=== PATIENT | female | born 2000 | race Caucasian/White ===

== ENCOUNTER 2019-09-19 09:22 | Emergency (ER) | payer OTHER, SELFPAY ==
[2019-09-19 09:26] VITALS: BP 110/78; PULSE 82; RESP 20; TEMP 35.7; O2SAT 97; BMI 30.9
--- NOTE | 2019-09-19 09:40 | RAD_ITS ---
STUDY: X-RAY - THORACIC SPINE REASON FOR EXAM: Female, 19 years old. UPPER THORACIC BACK PAIN S/P FALL; -- PATIENT STATES H/O T4 HAIRLINE FRACTURE TECHNIQUE: 3 view(s) of the thoracic spine were obtained. COMPARISON: None. FINDINGS: Normal kyphosis of the thoracic spine. There is no substantial scoliosis. Normal thoracic vertebrae and endplates. Normal disc space heights. The soft tissue structures are unremarkable. RAD/Thoracic Spine 3 Views IMPRESSION: Normal x-ray examination of the thoracic spine. Electronically Signed: Seth Gastelum, at 10:18 EDT , Service support ,
--- NOTE | 2019-09-19 09:57 | ED.VIS.FALL ---
History of Present Illness Informant: Patient Occurred: Today Mechanism/Context: Same level fall, Trip Usually ambulates: Without assistance Location: Thoracic back Quality of Pain: Sharp Current Severity: Moderate Maximum Severity: Moderate Worsened by: Movement and walking Relieved by: Rest Associated Symptoms: Negative for: Parasthesias, Weakness, Loss of function, Inability to ambulate, Loss of consciousness, Amnesia Narrative: 19-year-old female presents with thoracic back pain after mechanical fall this morning. Patient tripped and fell landing on her thoracic back. She had no prodromal symptoms. She did hit the back of her head on the ground but did not lose consciousness. She does not feel lightheaded or dizzy she has no neck pain no nausea no blurry vision double vision or loss of vision. She denies any weakness or paresthesias. She has a history of a thoracic back fracture several years ago from volleyball. She denies any other injuries at this time. Tetanus Immunization: <5 years Prior similar symptoms: Yes Recent Illness/Hospitalization: No <Regulo Wong - Last Filed: 09/19/19 10:29> <Earl Tolentino - Last Filed: 09/19/19 10:39> Chief Complaint: Back Past Medical History Prior records reviewed: Yes Past Medical History: None Surgical History: no surgical history Lives: With Family Smoking Status: Former smoker <Regulo Wong - Last Filed: 09/19/19 10:29> <Earl Tolentino - Last Filed: 09/19/19 10:39> - Allergies and Home Meds Allergies/Adverse Reactions: Allergies No Known Allergies Allergy (Verified 09/19/19 09:26) Primary Care Physician: Tristan Ortiz DO [Primary Care Provider] - Review of Systems All systems negative except as indicated General: Denies: Chills, Fever, Malaise Eyes: Denies: Visual changes - bilaterally, Blurred Vision - bilaterally, Diplopia ENT: Denies: Bilateral ear pain, Rhinorrhea, Sore throat Cardiovascular: Denies: Chest pain, Palpitations, Heart racing Respiratory: Denies: Dyspnea, Cough, Sputum, Dyspnea on exertion Gastrointestinal: Denies: Abdominal pain, Nausea, Vomiting, Diarrhea Genitourinary: Denies: Dysuria, Hematuria, Frequency Musculoskeletal: Reports: Back pain. Denies: Myalgias, Arthralgias, Neck pain, Swelling, Extremity Pain Skin: Denies: Rash, Abscess, Abrasions, Wounds Neurological: Denies: Headache, Weakness, Parasthesia, Numbness <Regulo Wong - Last Filed: 09/19/19 10:29> Physical Exam Vital Signs/Narrative: Vital Signs Temp Pulse Resp BP Pulse Ox 09/19/19 09:26 96.2 F L 82 20 H 110/78 97 Inital Vital Signs reviewed: Yes General: Well nourished, Well developed Head: Normocephalic, Atraumatic Eyes: Perrl, EOMI ENT: TM's clear, No hemotympanum or drainage, No trauma Neck: Nontender, Full ROM. Negative for: Spinal Tenderness, Paraspinal Tenderness Cardiovascular: Regular rate, Regular rhythm, No murmurs Respiratory: No distress, CTA bilaterally, Chest nontender Abdomen: Soft, Nontender, Nondistended, Normal bowel sounds, No masses Back: Spinal Tenderness - Thoracic spinal tenderness. No deformities. Normal inspection of the back. Normal strength testing of all 4 extremities, Paraspinal Tenderness, Negative SLR - Right, Negative SLR - Left. Negative for: CVA Tenderness - Right, CVA Tenderness - Left Skin: Normal color, No rash, No Trauma Neurological: Alert, Oriented x3, Cranial nerves II-XII grossly intact, Normal Strength, Normal Sensation, Normal Gait Psychological: Normal affect, Normal Mood <Regulo Wong - Last Filed: 09/19/19 10:29> Vital Signs/Narrative: Vital Signs Temp Pulse Resp BP Pulse Ox 09/19/19 10:33 14 09/19/19 09:26 96.2 F L 82 20 H 110/78 97 <Earl Tolentino - Last Filed: 09/19/19 10:39> Diagnostic/Tx/Re-eval - Medical Decision Making Patient declined analgesia. Thoracic spine x-ray showed no acute findings. Repeat evaluation patient reassured. She will rest and ice. She has Motrin at home to use for pain. She will alternate with Tylenol. I advised her that if she develops worsening symptoms which I went over with her in detail that she is to return to the emergency department. She was agreeable with plan of care all questions were answered. <Regulo Wong - Last Filed: 09/19/19 10:29> - Medical Decision Making Patient has thoracic back pain. She has a history of the same. Exam reveals pain in the thoracic area. Xrays are negative for any findings. She will use motrin and tylenol and follow up with her PCP. <Earl Tolentino - Last Filed: 09/19/19 10:39> ED Disposition <Regulo Wong - Last Filed: 09/19/19 10:29> <Earl Tolentino - Last Filed: 09/19/19 10:39> - Plan for ED Patient: Disposition: Home or Assisted Living Diagnosis: Contusion of thoracic wall Instructions: ED Contusion Back Referrals: Tristan Ortiz DO [Primary Care Provider] -
[2019-09-19 10:33] VITALS: RESP 14
== END 2019-09-19 10:33 | disposition home or self-care (01) ==
PROVIDERS: Emergency Provider Physician Assistant Medical; PCP Family Medicine
DX: S20.229A Contusion of unspecified back wall of thorax, initial encounter (principal); W01.0XXA Fall on same level from slipping, tripping and stumbling without subsequent striking against object, initial encounter; Z87.891 Personal history of nicotine dependence
CPT/HCPCS: 72072; 99282

== ENCOUNTER 2025-01-27 12:12 | Emergency (ER) | payer BC, SELFPAY ==
[2025-01-27 12:13] VITALS: BP 132/89; PULSE 81; RESP 14; TEMP 36.1; O2SAT 98; BMI 27.6
--- NOTE | 2025-01-27 13:11 | EKG12_ITS ---
Test Reason : CP/SOB Blood Pressure : */* mmHG Vent. Rate : 73 BPM Atrial Rate : 73 BPM P-R Int : 100 ms QRS Dur : 98 ms QT Int : 408 ms P-R-T Axes : 53 10 -6 degrees QTcB Int : 449 ms Sinus rhythm with short AR Otherwise normal ECG Confirmed by Keith Dewey ([id number]), assistant film editor ABDULAZIZ RICO ([id number]) on 01/28/2025 11:40:54 AM Referred By: UG/BB Confirmed By: Keith Dewey
--- NOTE | 2025-01-27 13:11 | EKG12_ITS ---
Test Reason : CP/SOB Blood Pressure : */* mmHG Vent. Rate : 73 BPM Atrial Rate : 73 BPM P-R Int : 100 ms QRS Dur : 98 ms QT Int : 408 ms P-R-T Axes : 53 10 -6 degrees QTcB Int : 449 ms Sinus rhythm with short [place] Otherwise normal ECG Confirmed by Keith Dewey ([id number]), editor producer ABDULAZIZ RICO ([id number]) on 01/28/2025 11:40:54 AM Referred By: UG/BB Confirmed By: Keith Dewey
[2025-01-27] MEDS: Lidocaine 2% Viscous15 ML UDC 15 ML PO (13:17)
--- NOTE | 2025-01-27 13:25 | RAD_ITS ---
PROCEDURE: CHEST 1 VIEW (PORTABLE) 01/27/2025 REASON FOR EXAM: CHEST PAIN TECHNIQUE: Frontal view of the chest. COMPARISON: None FINDINGS: Heart size and configuration are within normal limits. Pulmonary vasculature and hilar structures are unremarkable. Trachea is midline. Lungs are expanded and clear without evidence of atelectasis, consolidation, effusion, pneumonic infiltrate or pneumothoraces. Osseous structures appear to be within normal limits. Soft tissue structures appear unremarkable. RAD/Chest 1 View (Portable) IMPRESSION: No acute cardiopulmonary process is identified radiographically. Reading Location: [id number]
--- NOTE | 2025-01-27 13:25 | RAD_ITS ---
PROCEDURE: CHEST 1 VIEW (PORTABLE) 01/27/2025 REASON FOR EXAM: CHEST PAIN TECHNIQUE: Frontal view of the chest. COMPARISON: None FINDINGS: Heart size and configuration are within normal limits. Pulmonary vasculature and hilar structures are unremarkable. Trachea is midline. Lungs are expanded and clear without evidence of atelectasis, consolidation, effusion, pneumonic infiltrate or pneumothoraces. Osseous structures appear to be within normal limits. Soft tissue structures appear unremarkable. RAD/Chest 1 View (Portable) IMPRESSION: No acute cardiopulmonary process is identified radiographically. Reading Location: [id number]
[2025-01-27 13:29] LABS: Hematocrit 38.6 % (37-47); Hemoglobin 13.5 g/dL (12.0-15.0); Immature Granulocytes Count 0.010 X10^3/uL (0.0-0.0); Mean Corp Hgb Conc 35.0 g/dL (32-36); Mean Corpuscular Volume 89.4 fL (81-99); Mean Platelet Vol. 9.4 fl (6.2-12.0); NRBC Flagged by Analyzer 0 % (0-5); Platelet Count 209 K/mm3 (150-450); RBC Distribution Width CV 11.6 % (11.6-14.6); RBC Distribution Width SD 38.0 fl (35.1-43.9); Red Blood Count 4.32 M/mm3 (4.2-5.4); White Blood Count 6.3 K/mm3 (4.4-11.0)
[2025-01-27 13:52] LABS: Anion Gap 12 (5-15); BUN 14 mg/dL (4-19); BUN/Creat Ratio 18.5 RATIO (10-20); Calcium,Total 9.3 mg/dL (7.6-11.0); Carbon Dioxide 23.7 mmol/L (21.0-32.0); Chloride 103 mmol/L (98-108); Estimated Creatinine Clearance 115.42 ml/min (50-250); Glucose 90 mg/dL (70-99); Potassium 3.6 mmol/L (3.3-5.1); Troponin T High Sensitivity < 6 ng/L (<=14)
--- NOTE | 2025-01-27 14:29 | ED.VIS.CHEST ---
HPI History of Present Illness Chief Complaint: Chest Pain Informant: patient Narrative Narrative: 25-year-old female started having some lower midsternal sharp chest discomfort last night, she woke up from sleep this morning with it worse than it has been present all morning. She states if she takes a deep breath it is a little worse and makes her feel like it is difficult to take a deep breath. She is not frankly winded. She denies any palpitations, racing heartbeat, left arm discomfort, radiation into her back or her jaw, or syncope/near syncope. No recent leg pain or swelling. No history of DVT or PE. She is a non-smoker although she used to in the past, and she is on no exogenous female hormone therapy. No recent long travel or immobilization/hospitalization/surgery. 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 As a separate issue, the patient states for the past 3-4 weeks she has been having intermittent dizziness that also gives her disequilibrium and she feels like she is off balance when walking and has trouble with spatial recognition at times. She feels like she has got a bump in the things because she is off balance. In the same period of time she has been having discomfort in her left ear and changes in her hearing although she can hear, was diagnosed by her doctors having a possible ear infection and placed on antibiotics but it did not help anything. She denies headaches, diplopia although she is having issues with her vision separately without vision loss, and denies any peripheral neurologic symptoms. [facility] Medical History Idiopathic gastroparesis Asthma Anxiety Depression Home Medications ?Medication ?Instructions ?Recorded ?Last Taken ?Type azelaic acid 15 % topical gel 1 applic topical BID 01/27/25 Unknown History cyclobenzaprine 5 mg tablet 5 mg PO BID PRN PRN muscle spasm 01/27/25 Unknown History meclizine 25 mg tablet 25 mg PO TID PRN dizziness #20 tabs 01/27/25 Unknown Rx metronidazole 0.75 % topical cream 1 applic topical BID 01/27/25 Unknown History spironolactone 100 mg tablet 100 mg PO DAILY 01/27/25 Unknown History Allergy/AdvReac Type Severity Reaction Status Date / Time No Known Allergies Allergy Verified 01/27/25 12:13 Social History Smoking Status: Current some day smoker tobacco type: cigarettes and e-cigarettes ROS ROS ED Constitutional Constitutional ED: Denies chills or fever(s) Eyes Eyes: Denies change in vision or diplopia ENT ENT ED: Reports as per HPI, abnormal hearing, disequillibrium and dizziness; Denies ear discharge, ear pain, rhinorrhea, sore throat or tinnitus Cardiovascular Cardiovascular: Reports as per HPI and chest pain; Denies palpitations Respiratory/Chest Respiratory/Chest: Denies cough, dyspnea or hemoptysis Gastrointestinal Gastrointestinal: Reports nausea; Denies abdominal pain, diarrhea or vomiting Genitourinary Genitourinary ED: Denies dysuria or hematuria Musculoskeletal Musculoskeletal: Denies back pain or neck pain Integumentary Denies abscess or rash Neurologic Neurologic: Reports as per HPI, abnormal gait, abnormal hearing, disequilibrium and dizziness; Denies headache(s), paresthesias or weakness Psychiatric Psychiatric: Denies anxiety or suicidal thoughts EXAM Physical Exam Const Vital Signs: 01/27/25 12:13 01/27/25 12:33 01/27/25 12:40 Temperature 97 F L Temperature Source Temporal Pulse Rate 81 Respiratory Rate 14 Respiratory Pattern Normal Blood Pressure 132/89 H Blood Pressure Mean 103 Pulse Ox 98 Oxygen Delivery Method Room Air Room Air 01/27/25 14:45 Temperature Temperature Source Pulse Rate 62 Respiratory Rate 13 Respiratory Pattern Blood Pressure Blood Pressure Mean Pulse Ox 98 Oxygen Delivery Method Positive well nourished and well developed General Appearance ED: well developed and NAD HEENT Reports moist mucous membranes normocephalic and atraumatic Eyes PERRL and EOMs intact bilaterally Neck full ROM and supple Resp normal respiratory effort and clear to auscultation bilaterally Cardio regular rate, regular rhythm and no murmurs GI non-tender and non-distended Auscultation: normoactive bowel sounds Palpation: soft Back/Spine no CVA tenderness General Back: other FROM Extremity normal to inspection General Extremety ED: Negative for edema, pulses abnormal or tenderness General Extremity: Negative for edema or pulses abnormal Neuro oriented x3, CN's II-XII intact bilaterally and no sensory deficits noted Sensorium / Orientation: awake and alert Motor Exam: strength 5/5 throughout Skin no rashes or lesions noted and no wounds Heart Score History: Slightly/Non-Suspicious ECG: Normal Age: </= 45 years Risk Factors: No Risk Factors Troponin: </= Normal Limit Score: 0 MDM MDM MDM Narrative Medical decision making narrative: Patient's EKG is normal. I think she is very unlikely had an acute coronary syndrome, her single negative troponin correlates. 2 view chest x-ray my interpretation is normal radiology in agreement. PERC score 0, obviating further workup for PE at this time for the symptoms. Her other labs are normal in the meantime she was given a GI cocktail she states this helped but she still in some discomfort. Esophageal reflux in addition to spasm are considered in the differential, so she will also be given a hyoscyamine prior to discharge, I am also going to prescribe her meclizine to use as needed for what sounds like peripheral vertigo, she has pantoprazole which I advised her taking daily for the next week or so and following up. She is comfortable with that plan. Lab Data Attestation: I reviewed the patient's lab results. Labs: Laboratory Results - last 24 hr 01/27/25 12:40 WBC 6.3 RBC 4.32 Hgb 13.5 Hct 38.6 MCV 89.4 MCH 31.3 MCHC 35.0 RDW Std Deviation 38.0 RDW Coeff of Zaira 11.6 Plt Count 209 MPV 9.4 Immature Gran % (Auto) 0.200 Neut % (Auto) 60.0 Lymph % (Auto) 29.8 [place] % (Auto) 6.7 Eos % (Auto) 2.5 Baso % (Auto) 0.8 Absolute Neuts (auto) 3.8 Absolute Lymphs (auto) 1.88 Nucleated RBC % 0 Sodium 139 Potassium 3.6 Chloride 103 Carbon Dioxide 23.7 Anion Gap 12 BUN 14 Creatinine 0.77 Estim Creat Clear Calc 115.42 Est GFR (MDRD) Non-Af 108 BUN/Creatinine Ratio 18.5 Glucose 90 Calcium 9.3 Troponin T High Sens < 6 Radiography Diagnostic Testing: Clinical Impression(s) from Imaging Studies Chest X-Ray 01/27/25 13:25 IMPRESSION: No acute cardiopulmonary process is identified radiographically. Reading Location: [facility] Discharge Plan Triage Chief Complaint: Chest Pain ED Provider: Ajay Rousseau Dx/Rx/DC Orders Clinical Impression: Non-cardiac chest pain, Peripheral vertigo involving left ear Instructions: Inner Ear Balance, ED Chest Pain, Noncardiac Prescriptions: New meclizine 25 mg tablet 25 mg PO TID PRN (Reason: dizziness) Qty: 20 0RF Continued spironolactone 100 mg tablet 100 mg PO DAILY cyclobenzaprine 5 mg tablet 5 mg PO BID PRN PRN (Reason: muscle spasm) metronidazole 0.75 % cream 1 applic topical BID azelaic acid 15 % gel 1 applic topical BID Primary Care Provider: Tristan Ortiz Referrals: Tristan Ortiz DO [Primary Care Provider] - 1-2 Weeks Zac Whitaker MD [Med Staff - Active Staff] - (for vertigo) Activity Restrictions/Additional Instructions: Take your pantoprazole daily for the next week, then as needed for recurrent symptoms. Print Language: Pashto Disposition Disposition: Home, Self Care
[2025-01-27 14:45] VITALS: PULSE 62; RESP 13; O2SAT 98
[2025-01-27 15:02] VITALS: BP 108/78; PULSE 72; RESP 17; TEMP 36.7; O2SAT 100
[2025-01-27 15:27] LABS: Troponin T High Sens 2 HR < 6 ng/L (<=14)
== END 2025-01-27 15:04 | disposition home or self-care (01) ==
PROVIDERS: Emergency Provider Emergency Medicine; PCP Family Medicine; Visit Provider Emergency Medicine
DX: R07.89 Other chest pain (principal); H81.392 Other peripheral vertigo, left ear; J45.909 Unspecified asthma, uncomplicated; F17.210 Nicotine dependence, cigarettes, uncomplicated; F17.290 Nicotine dependence, other tobacco product, uncomplicated; Z79.899 Other long term (current) drug therapy
CPT/HCPCS: 71045; 80048; 84484; 85025; 93005; 96374; 99285; A4216; J2405